=== PATIENT | female | born 1950 | race Caucasian/White ===

== ENCOUNTER 2021-07-09 15:51 | Emergency (ER) | payer MEDICARE, OTHER ==
--- NOTE | 2021-07-09 17:23 | EDM.PDOC ---
ED HPI GENERAL MEDICAL PROBLEM - General Chief Complaint: General Stated Complaint: HIGH BLOOD PRESSURE Time Seen by Provider: 07/09/21 16:16 Source of Information: Reports: Patient, RN Notes Reviewed History Limitations: Reports: No Limitations - History of Present Illness INITIAL COMMENTS - FREE TEXT/NARRATIVE: Patient is a 71-year-old female presenting to the emergency department from the [facility] with complaints of high blood pressure, intermittent headaches which she describes as sometimes throbbing and sometimes pressure, nausea, heartburn, diarrhea, shortness of breath, and body aches. She reports symptoms have been present off and on for the last few days. They were at the [place] yesterday and her friend checked her blood pressure and she reports her diastolic blood pressure was around 100. She cannot member her systolic blood pressure. Blood pressure was also elevated at [facility]. Denies any chest pain or abdominal pain. She has had no fever or chills. Reports that she has had elevated blood pressures in the past, however she has never had treatment for high blood pressure. She reports having both [place] vaccinations in January. Primary care provider is Dr. Paz. She is scheduled to see him in one month for an annual visit. Middle Back Pain Score (Numeric/FACES): 3 - Related Data Allergies Allergy/AdvReac Type Severity Reaction Status Date / Time No Known Allergies Allergy Verified 07/09/21 16:19 Home Meds: Home Meds Aspirin [Halfprin] 81 mg PO DAILY 07/09/21 [History] Calcium Carbonate [Calcium] 600 mg PO BID 07/09/21 [History] Citalopram [Citalopram HBr] 20 mg PO DAILY 07/09/21 [History] Fish Oil/[place]-3 Fatty Acids [Fish Oil 1,000 MG] 1 gram PO BID 07/09/21 [History] Levothyroxine [Synthroid] 88 mcg PO DAILY 07/09/21 [History] Pravastatin Sodium [Pravastatin (Pravachol)] 40 mg PO DAILY 07/09/21 [History] Venlafaxine [Effexor] 37.5 mg PO DAILY 07/09/21 [History] hydroCHLOROthiazide [Hydrochlorothiazide] 12.5 mg PO DAILY #30 cap 07/09/21 [Rx] lisinopriL [Lisinopril] 5 mg PO DAILY #30 tablet 07/09/21 [Rx] Past Medical History HEENT History: Reports: Impaired Vision Cardiovascular History: Reports: High Cholesterol Respiratory History: Reports: Pneumonia, Recurrent Other Respiratory History: double pneumonia Musculoskeletal History: Reports: Back Pain, Chronic, Neck Pain, Chronic Endocrine/Metabolic History: Reports: Hypothyroidism - Infectious Disease History Infectious Disease History: Reports: Rheumatic Fever - Past Surgical History HEENT Surgical History: Reports: Cataract Surgery, Tonsillectomy GI Surgical History: Reports: Colonoscopy Female Surgical History: Reports: Hysterectomy Endocrine Surgical History: Reports: Other (See Below) Other Endocrine Surgeries/Procedures: took radiation therapy -pills to kill the thyroid Social & Family History - Tobacco Use Tobacco Use Status *Q: Former Tobacco User Used Tobacco, but Quit: Yes Month/Year Tobacco Last Used: 1984 - Caffeine Use Caffeine Use: Reports: Coffee, Soda, Tea - Recreational Drug Use Recreational Drug Use: No ED ROS GENERAL - Review of Systems Review Of Systems: See Below Constitutional: Denies: Fever, Chills HEENT: Reports: No Symptoms Respiratory: Reports: Shortness of Breath. Denies: Wheezing, Cough Cardiovascular: Reports: Dyspnea on Exertion. Denies: Chest Pain, Lighthe adedness, Palpitations Endocrine: Reports: No Symptoms GI/Abdominal: Reports: Diarrhea, Nausea. Denies: Abdominal Pain, Vomiting : Reports: No Symptoms. Denies: Dysuria, Flank Pain Musculoskeletal: Reports: Other (Back and neck pain which she states is chronic. Intermittent generalized body aches.) Skin: Reports: No Symptoms Neurological: Reports: No Symptoms Psychiatric: Reports: No Symptoms Hematologic/Lymphatic: Reports: No Symptoms Immunologic: Reports: No Symptoms ED EXAM, GENERAL - Physical Exam Exam: See Below Exam Limited By: No Limitations General Appearance: Alert, WD/WN, No Apparent Distress Respiratory/Chest: No Respiratory Distress, Lungs Clear, Normal Breath Sounds, No Accessory Muscle Use, Chest Non-Tender Cardiovascular: Normal Peripheral Pulses, Regular Rate, Rhythm, No Edema, No Gallop, No JVD, No Murmur, No Rub GI/Abdominal: Normal Bowel Sounds, Soft, Non-Tender, No Organomegaly, No Distention, No Abnormal Bruit, No Mass Neurological: Alert, Oriented, CN II-XII Intact, Normal Cognition, Normal Gait, Normal Reflexes, No Motor/Sensory Deficits Psychiatric: Normal Affect, Normal Mood Skin Exam: Warm, Dry, Intact, Normal Color, No Rash #1 Interpretation EKG Date: 07/09/21 Time: 16:44 Rhythm: NSR Rate (Beats/Min): 69 [place]: Normal P-Wave: Present QRS: Normal ST-T: Normal QT: Normal [place]/PQ Interval: prolonged Course - Vital Signs Last Recorded V/S: Last Vital Signs Temp Pulse Resp BP 163/95 H 07/09/21 18:33 Pulse Ox - Orders/Labs/Meds Orders: Active Orders 24 hr Category Date Time Status Chest 2V [CR] Stat Exams 07/09/21 16:22 Taken Labs: Laboratory Tests 07/09/21 07/09/21 07/09/21 Range/Units 16:36 16:36 16:58 WBC 8.95 (3.98-10.04) K/mm3 RBC 4.30 (3.98-5.22) M/mm3 Hgb 13.2 (11.2-15.7) gm/dl Hct 40.7 (34.1-44.9) % MCV 94.7 (79.4-94.8) fl MCH 30.7 (25.6-32.2) pg MCHC 32.4 (32.2-35.5) g/dl RDW Std Deviation 42.6 (36.4-46.3) fL Plt Count 345 (182-369) K/mm3 MPV 9.1 L (9.4-12.3) fl Neut % (Auto) 50.2 (34.0-71.1) % Lymph % (Auto) 32.4 (19.3-51.7) % [place] % (Auto) 12.1 (4.7-12.5) % Eos % (Auto) 4.9 (0.7-5.8) Baso % (Auto) 0.3 (0.1-1.2) % Neut # (Auto) 4.49 (1.56-6.13) K/mm3 Lymph # (Auto) 2.90 (1.18-3.74) K/mm3 [place] # (Auto) 1.08 H (0.24-0.36) K/mm3 Eos # (Auto) 0.44 H (0.04-0.36) K/mm3 Baso # (Auto) 0.03 (0.01-0.08) K/mm3 Sodium 141 (136-145) mEq/L Potassium 4.2 (3.5-5.1) mEq/L Chloride 106 (98-107) mEq/L Carbon Dioxide 29 (21-32) mEq/L Anion Gap 10.2 (5-15) BUN 14 (7-18) mg/dL Creatinine 0.6 (0.55-1.02) mg/dL Est Cr Clr Drug Dosing 67.03 mL/min Estimated GFR (MDRD) > 60 (>60) mL/min BUN/Creatinine Ratio 23.3 H (14-18) Glucose 104 H (70-99) mg/dL Calcium 8.7 (8.5-10.1) mg/dL Total Bilirubin 0.4 (0.2-1.0) mg/dL AST 29 (15-37) U/L ALT 58 (14-59) U/L Alkaline Phosphatase 85 (46-116) U/L Troponin I < 0.017 (0.00-0.056) ng/mL Total Protein 6.5 (6.4-8.2) g/dl Albumin 3.4 (3.4-5.0) g/dl Globulin 3.1 gm/dL Albumin/Globulin Ratio 1.1 (1-2) TSH 3rd Generation 0.734 (0.358-3.74) uIU/mL SARS-CoV-2 RNA (EMILEE) Negative (NEGATIVE) Meds: Medications Discontinued Medications Generic Name Dose Route Start Last Admin Trade Name Freq PRN Reason Stop Dose Admin Hydrochlorothiazide 12.5 mg 07/09/21 18:19 07/09/21 18:35 Hydrochlorothiazide 12.5 Mg Cap PO 07/09/21 18:20 12.5 mg ONETIME ONE Administration Lisinopril 5 mg 07/09/21 18:19 07/09/21 18:33 Lisinopril 5 Mg Tab PO 07/09/21 18:20 5 mg ONETIME ONE Administration - Re-Assessments/Exams Free Text/Narrative Re-Assessment/Exam: As above, patient is a 71-year-old female presenting to the emergency department from the [facility] with main complaint of elevated blood pressure, however reports numerous other symptoms as well. Blood pressure on arrival to ER was 175/95. Denies any significant headache or pressure at this time. She is not having any chest pain. I ordered blood work, EKG, chest x-ray, and Covid test. We will monitor her blood pressure. 07/09/21 1820 Hematology is unremarkable. Covid test is negative. Chest x-ray shows no acute abnormalities. Blood pressures have maintained in the 170s to 180s systolica lly over 90s diastolically. Start the patient on lisinopril and hydrochlorothiazide and recommend follow-up with your primary care provider in 1 week. Recommend daily blood pressure checks and keeping a log of the readings. Discharge instructions as documented. Departure - Departure Time of Disposition: 18:21 Disposition: Home, Self-Care 01 Condition: Good Clinical Impression: Hypertension Qualifiers: Hypertension type: unspecified Qualified Code(s): I10 - Essential (primary) hypertension - Discharge Information *PRESCRIPTION DRUG MONITORING PROGRAM REVIEWED*: No *COPY OF PRESCRIPTION DRUG MONITORING REPORT IN PATIENT BENNY: No Prescriptions: hydroCHLOROthiazide [Hydrochlorothiazide] 12.5 mg PO DAILY #30 cap lisinopriL [Lisinopril] 5 mg PO DAILY #30 tablet Instructions: Hypertension, Adult, [id number] Referrals: Manuel Serrano MD [Primary Care Provider] - Forms: ED Department Discharge Additional Instructions: You were seen in the emergency department today for elevated blood pressure as well as intermittent headaches and a number of other symptoms. Work-up included blood work, chest x-ray, EKG, and Covid test. Results of your work-up were found to be normal. Blood pressure stayed fairly consistently elevated in the 170s to 180s over 90s. You have been started on hydrochlorothiazide which is a diuretic and lisinopril for blood pressure. You received first dose of these this evening. Prescription for this has been sent to your pharmacy. Recommend checking your blood pressure a couple times a day at different times and keep a log of these readings. Call to schedule follow-up with your primary care provider for next week to reevaluate this. If you should experience any new or worsening symptoms, please do not hesitate to return to the emergency department for reevaluation. Sepsis Event Note (ED) - Focused Exam Vital Signs: Vital Signs BP 07/09/21 18:33 163/95 H - My Orders Last 24 Hours: My Active Orders 07/09/21 16:22 Chest 2V [CR] Stat - Assessment/Plan Last 24 Hours: My Active Orders 07/09/21 16:22 Chest 2V [CR] Stat
[2021-07-09] MEDS ORDERED: Hydrochlorothiazide 12.5 MG Cap PO ONE (18:19)
[2021-07-09] MEDS ORDERED: Lisinopril 5 MG Tab PO ONE (18:19)
--- NOTE | 2021-07-10 07:17 | CR ---
Chest: 2 views of the chest were obtained. Comparison: No prior chest imaging is available. Slight parenchymal density is seen within the right lung base. Lungs otherwise are clear. Heart size is at the upper limits of normal. Upper mediastinum is within normal limits. Prior cervical spine surgery is noted. Bony structures are osteopenic. Impression: 1. Possible minimal area of pneumonia within the right lung base. 2. Other findings believed to be incidental as described above. Diagnostic code #3
== END 2021-07-09 18:45 | disposition home or self-care (01) ==
LOC: JD.ED 15:51
DX: I10 Essential (primary) hypertension (principal); E78.00 Pure hypercholesterolemia, unspecified; E03.9 Hypothyroidism, unspecified; Z87.891 Personal history of nicotine dependence; Z79.82 Long term (current) use of aspirin; Z79.899 Other long term (current) drug therapy; Z20.822 Contact with and (suspected) exposure to COVID-19
CPT/HCPCS: 36415; 71046; 71046-26; 80053; 84443; 84484; 85025; 93005; 93010; 99284; 99284-25; A9270-GY; U0002

== ENCOUNTER 2021-07-23 13:36 | Emergency (ER) | payer MEDICARE, OTHER ==
--- NOTE | 2021-07-23 14:46 | CR ---
Chest: Portable view of the chest was obtained. Comparison: Prior chest x-ray of 07/09/21. Heart size and mediastinum are within normal limits. Lungs are clear with no acute parenchymal change. Bony structures show nothing acute. Impression: 1. Nothing acute is seen on portable chest x-ray. Diagnostic code #1
--- NOTE | 2021-07-23 15:13 | EDM.PDOC ---
ED HPI GENERAL MEDICAL PROBLEM - General Chief Complaint: Cardiovascular Problem Stated Complaint: CHEST PAIN Time Seen by Provider: 07/23/21 13:50 Source of Information: Reports: Patient, RN Notes Reviewed History Limitations: Reports: No Limitations - History of Present Illness INITIAL COMMENTS - FREE TEXT/NARRATIVE: Patient is a 71-year-old female presenting to the emergency department for evaluation with regards to an episode of palpitations with upper back pain that she experienced approximately 2 hours prior to coming to ER. Patient was seen in this emergency department 2 weeks ago for high blood pressure. She was started on lisinopril and hydrochlorothiazide. Reports she is still taking this medication. She saw her primary care provider 1 week after being in the ER and was diagnosed with walking pneumonia. She was treated with erythromycin which she completed on Wednesday. She reports that he also increased her lisinopril from 5 mg to 10 mg, however she took this for a few days and reports that it was making her dizzy, therefore she is only taking 5 mg at this time. Reports that for at least the last week, she has been having some upper chest discomfort which she attributed to her pneumonia. Today she went to lie down for a nap and experienced palpitations and feeling like her heart was racing. She also reports that she felt short of breath with this. She checked her blood pressure and states her blood pressure was okay but her pulse rate was 106-109. She also reports some upper back pain which she does not believe was present previously. When last seen in the ER, patient was tested for Covid when found to be negative. Patient reports that her primary care provider did want to retest her, however she declined. She is unsure if she would like to be tested today. She does have a follow-up scheduled with her primary care provider, Dr. Paz, tomorrow. Upper Chest Pain Score (Numeric/FACES): 5 - Related Data Allergies Allergy/AdvReac Type Severity Reaction Status Date / Time No Known Allergies Allergy Verified 07/23/21 13:54 Home Meds: Home Meds Aspirin [Halfprin] 81 mg PO DAILY 07/09/21 [History] Calcium Carbonate [Calcium] 600 mg PO BID 07/09/21 [History] Fish Oil/[place]-3 Fatty Acids [Fish Oil 1,000 MG] 1 gram PO BID 07/09/21 [History] Levothyroxine [Synthroid] 88 mcg PO DAILY 07/09/21 [History] Pravastatin Sodium [Pravastatin (Pravachol)] 40 mg PO DAILY 07/09/21 [History] hydroCHLOROthiazide [Hydrochlorothiazide] 12.5 mg PO DAILY #30 cap 07/09/21 [Rx] lisinopriL [Lisinopril] 5 mg PO DAILY #30 tablet 07/09/21 [Rx] Past Medical History HEENT History: Reports: Impaired Vision Cardiovascular History: Reports: High Cholesterol, Hypertension Respiratory History: Reports: Pneumonia, Recurrent Other Respiratory History: double pneumonia Musculoskeletal History: Reports: Back Pain, Chronic, Neck Pain, Chronic Endocrine/Metabolic History: Reports: Hypothyroidism - Infectious Disease History Infectious Disease History: Reports: Rheumatic Fever - Past Surgical History HEENT Surgical History: Reports: Cataract Surgery, Tonsillectomy GI Surgical History: Reports: Colonoscopy Female Surgical History: Reports: Hysterectomy Endocrine Surgical History: Reports: Other (See Below) Other Endocrine Surgeries/Procedures: took radiation therapy -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 Denies: Fever, Chills HEENT: Reports: No Symptoms Respiratory: Reports: Shortness of Breath. Denies: Cough Cardiovascular: Reports: Chest Pain, Palpitations. Denies: Dyspnea on Exertion, Syncope Endocrine: Reports: No Symptoms GI/Abdominal: Reports: No Symptoms : Reports: No Symptoms Musculoskeletal: Reports: Back Pain Skin: Reports: No Symptoms Neurological: Reports: No Symptoms Psychiatric: Reports: No Symptoms Hematologic/Lymphatic: Reports: No Symptoms Immunologic: Reports: No Symptoms ED EXAM, GENERAL - Physical Exam Exam: See Below Exam Limited By: No Limitations General Appearance: Alert, WD/WN, No Apparent Distress Respiratory/Chest: No Respiratory Distress, Lungs Clear, Normal Breath Sounds, No Accessory Muscle Use, Other (Mild anterior chest wall tenderness.) Cardiovascular: Normal Peripheral Pulses, Regular Rate, Rhythm, No Edema, No Gallop, No JVD, No Murmur, No Rub GI/Abdominal: Normal Bowel Sounds, Soft, Non-Tender, No Organomegaly, No Distention, No Abnormal Bruit, No Mass Neurological: Alert, Oriented, CN II-XII Intact, Normal Cognition, Normal Gait, Normal Reflexes, No Motor/Sensory Deficits Psychiatric: Normal Affect, Normal Mood Skin Exam: Warm, Dry, Intact, Normal Color, No Rash #1 Interpretation EKG Date: 07/23/21 Time: 13:50 Rhythm: NSR Rate (Beats/Min): 97 [place]: Normal P-Wave: Present QRS: Normal ST-T: Normal QT: Normal [place]/PQ Interval: prolonged COLBY Course - Vital Signs Last Recorded V/S: Last Vital Signs Temp 97.1 F 07/23/21 13:51 Pulse 92 07/23/21 13:51 Resp 35 H 07/23/21 13:51 BP 152/84 H 07/23/21 13:51 Pulse Ox 98 07/23/21 13:51 - Orders/Labs/Meds Labs: Laboratory Tests 07/23/21 07/23/21 07/23/21 Range/Units 14:25 14:25 14:25 WBC 11.30 H (3.98-10.04) K/mm3 RBC 4.54 (3.98-5.22) M/mm3 Hgb 13.8 (11.2-15.7) gm/dl Hct 41.8 (34.1-44.9) % MCV 92.1 (79.4-94.8) fl MCH 30.4 (25.6-32.2) pg MCHC 33.0 (32.2-35.5) g/dl RDW Std Deviation 39.8 (36.4-46.3) fL Plt Count 301 (182-369) K/mm3 MPV 9.0 L (9.4-12.3) fl Neut % (Auto) 63.8 (34.0-71.1) % Lymph % (Auto) 27.3 (19.3-51.7) % [place] % (Auto) 5.7 (4.7-12.5) % Eos % (Auto) 2.7 (0.7-5.8) Baso % (Auto) 0.3 (0.1-1.2) % Neut # (Auto) 7.22 H (1.56-6.13) K/mm3 Lymph # (Auto) 3.08 (1.18-3.74) K/mm3 [place] # (Auto) 0.64 H (0.24-0.36) K/mm3 Eos # (Auto) 0.31 (0.04-0.36) K/mm3 Baso # (Auto) 0.03 (0.01-0.08) K/mm3 D-Dimer, Quantitative 0.25 (0.19-0.50) mg/L Sodium 140 (136-145) mEq/L Potassium 3.8 (3.5-5.1) mEq/L Chloride 103 (98-107) mEq/L Carbon Dioxide 29 (21-32) mEq/L Anion Gap 11.8 (5-15) BUN 24 H (7-18) mg/dL Creatinine 0.9 (0.55-1.02) mg/dL Est Cr Clr Drug Dosing 44.69 mL/min Estimated GFR (MDRD) > 60 (>60) mL/min BUN/Creatinine Ratio 26.7 H (14-18) Glucose 189 H (70-99) mg/dL Calcium 8.7 (8.5-10.1) mg/dL Magnesium (1.8-2.4) mg/dL Total Bilirubin 0.7 (0.2-1.0) mg/dL AST 42 H (15-37) U/L ALT 93 H (14-59) U/L Alkaline Phosphatase 94 (46-116) U/L Troponin I < 0.017 (0.00-0.056) ng/mL Total Protein 6.8 (6.4-8.2) g/dl Albumin 3.5 (3.4-5.0) g/dl Globulin 3.3 gm/dL Albumin/Globulin Ratio 1.1 (1-2) Urine Color (Yellow) Urine Appearance (Clear) Urine pH (5.0-8.0) Ur Specific [place] (1.005-1.030) Urine Protein (Negative) Urine Glucose (UA) (Negative) Urine Ketones (Negative) Urine Occult Blood (Negative) Urine Nitrite (Negative) Urine Bilirubin (Negative) Urine Urobilinogen (0.2-1.0) Ur Leukocyte Esterase (Negative) Urine RBC (0-5) /hpf Urine WBC (0-5) /hpf Ur Squamous Epith Cells (0-5) /hpf Urine Bacteria (FEW) /hpf Urine Mucus (FEW) /hpf SARS-CoV-2 RNA (EMILEE) (NEGATIVE) 0907/23/21 07/23/21 Range/Units 14:25 16:05 16:14 WBC (3.98-10.04) K/mm3 RBC (3.98-5.22) M/mm3 Hgb (11.2-15.7) gm/dl Hct (34.1-44.9) % MCV (79.4-94.8) fl MCH (25.6-32.2) pg MCHC (32.2-35.5) g/dl RDW Std Deviation (36.4-46.3) fL Plt Count (182-369) K/mm3 MPV (9.4-12.3) fl Neut % (Auto) (34.0-71.1) % Lymph % (Auto) (19.3-51.7) % [place] % (Auto) (4.7-12.5) % Eos % (Auto) (0.7-5.8) Baso % (Auto) (0.1-1.2) % Neut # (Auto) (1.56-6.13) K/mm3 Lymph # (Auto) (1.18-3.74) K/mm3 [place] # (Auto) (0.24-0.36) K/mm3 Eos # (Auto) (0.04-0.36) K/mm3 Baso # (Auto) (0.01-0.08) K/mm3 D-Dimer, Quantitative (0.19-0.50) mg/L Sodium (136-145) mEq/L Potassium (3.5-5.1) mEq/L Chloride (98-107) mEq/L Carbon Dioxide (21-32) mEq/L Anion Gap (5-15) BUN (7-18) mg/dL Creatinine (0.55-1.02) mg/dL Est Cr Clr Drug Dosing mL/min Estimated GFR (MDRD) (>60) mL/min BUN/Creatinine Ratio (14-18) Glucose (70-99) mg/dL Calcium (8.5-10.1) mg/dL Magnesium 2.2 (1.8-2.4) mg/dL Total Bilirubin (0.2-1.0) mg/dL AST (15-37) U/L ALT (14-59) U/L Alkaline Phosphatase (46-116) U/L Troponin I (0.00-0.056) ng/mL Total Protein (6.4-8.2) g/dl Albumin (3.4-5.0) g/dl Globulin gm/dL Albumin/Globulin Ratio (1-2) Urine Color Yellow (Yellow) Urine Appearance Clear (Clear) Urine pH 6.0 (5.0-8.0) Ur Specific [place] > or = 1.030 (1.005-1.030) Urine Protein Negative (Negative) Urine Glucose (UA) Negative (Negative) Urine Ketones Negative (Negative) Urine Occult Blood 1+ H (Negative) Urine Nitrite Negative (Negative) Urine Bilirubin Negative (Negative) Urine Urobilinogen 0.2 (0.2-1.0) Ur Leukocyte Esterase Negative (Negative) Urine RBC 0-5 (0-5) /hpf Urine WBC 0-5 (0-5) /hpf Ur Squamous Epith Cells 5-10 H (0-5) /hpf Urine Bacteria Few (FEW) /hpf Urine Mucus Few (FEW) /hpf SARS-CoV-2 RNA (EMILEE) Negative (NEGATIVE) - Re-Assessments/Exams Free Text/Narrative Re-Assessment/Exam: Patient is a 71-year-old female presenting to the emergency department for evaluation after experiencing an episode of palpitations home. Reports this happened around 1300 this afternoon. She has been having some upper chest discomfort for at least the last week. She was treated for walking pneumonia last week Wednesday and finished her erythromycin on Wednesday. Palpitations have resolved at this time. She does still have some upper back pain. She is unsure if she would like to be tested for Covid today, therefore I will not order that at this time. I have ordered cardiac work-up including blood work, EKG, chest x-ray. She is scheduled to see her primary care provider tomorrow. 07/23/21 16:02 Hematology is significant for WBC 11.30, BUN 24, AST 42, ALT 93. D-dimer and troponin are normal. EKG shows no acute abnormalities. Chest x-ray is normal. Results discussed with patient. She has decided to proceed with Covid testing. I have also ordered a urinalysis. I will call her with these results. She has an appointment with her primary care provider, Dr. Paz tomorrow. Recommend that she keep this. Discussed return precautions. Discharge instructions as documented. 07/23/21 17:28 Patient notified of negative Covid and urinalysis. Advised to follow-up with Dr. Paz tomorrow as scheduled. Departure - Departure Time of Disposition: 16:20 Disposition: Home, Self-Care 01 Condition: Good Clinical Impression: Palpitations, Atypical chest pain Instructions: Palpitations, [id number] Referrals: Manuel Serrano MD [Primary Care Provider] - Forms: ED Department Discharge Additional Instructions: You were seen in the emergency department today for ongoing shortness of breath, chest discomfort, as well as an episode of palpitations today. Your work-up included blood work, EKG of your heart, and chest x-ray. Results of your work- up were found to be normal. You are not having a heart attack and you do not have a blood clot in your lungs. We did order Covid testing and urinalysis however these results not available yet. We will call you with results of these. Recommend that you keep your appointment as scheduled tomorrow with Dr. Paz. If you should experience any worsening symptoms or develop new symptoms of concern, please do not hesitate to return to the emergency department for reevaluation. Sepsis Event Note (ED) - Focused Exam Vital Signs: Vital Signs Temp Pulse Resp BP Pulse Ox 07/23/21 13:51 97.1 F 92 35 H 152/84 H 98
== END 2021-07-23 16:45 | disposition home or self-care (01) ==
LOC: JD.ED 13:36
DX: R00.2 Palpitations (principal); R07.89 Other chest pain; E78.00 Pure hypercholesterolemia, unspecified; I10 Essential (primary) hypertension; E03.9 Hypothyroidism, unspecified; Z79.82 Long term (current) use of aspirin; Z79.899 Other long term (current) drug therapy; Z20.822 Contact with and (suspected) exposure to COVID-19
CPT/HCPCS: 36415; 71045; 80053; 81001; 83735; 84484; 85025; 85379; 93005; 99285; U0002